=== PATIENT | male | born 1965 | race Caucasian/White ===

== ENCOUNTER 2022-02-03 20:53 | Emergency (ER) | payer BC ==
[2022-02-03 21:07] VITALS: TEMP 98.4
[2022-02-03] MEDS ORDERED: SODIUM CHLORIDE 0.9% 500 ML 500 ML IV STA (21:48)
--- NOTE | 2022-02-03 21:54 | ED ---
Neuro HPI - General Chief Complaint: Neuro Symptoms/Deficit Stated Complaint: Facial/L arm numbness Time Seen by Provider: 02/03/22 21:29 Source: patient Mode of arrival: wheelchair Limitations: no limitations - History of Present Illness Is the patient presenting with stroke symptoms?: Yes Last Known Well Date: 02/03/22 Last Known Well Time: 16:30 -: hour(s) Initial Comments: Patient is a 56-year-old man who presents to be evaluated for numbness he states mainly to his left thumb will also a little bit to the left hand and then mild numbness to his left face. This started at 4:30 PM while he was about 2 watch a dramatic production that his daughter was in. Patient denies any associated symptoms. He was not having headache, vision or speech changes. No neck, chest or back pain. He is not having any fever or chills, dyspnea, nausea or vomi ting. No change in bowel movements or urination. Location: left face, left arm History of same: No Place: school Severity: mild Quality: numb Improves With: none Worsens With: none Context: sudden onset Associated Symptoms: denies other symptoms Treatments Prior to Arrival: none - Related Data Home Medications: Previous Rx's Medication Instructions Recorded Hydrochlorothiazide 12.5 mg PO DAILY #14 capsule 02/04/22 [hydroCHLOROthiazide] Allergies/Adverse Reactions: Allergies Allergy/AdvReac Type Severity Reaction Status Date / Time No Known Allergies Allergy Verified 02/03/22 21:07 Review of Systems ROS Statement: Those systems with pertinent positive or pertinent negative responses have been documented in the HPI. ROS Other: All systems not noted in ROS Statement are negative. Constitutional: Denies: fever, chills, weakness Eyes: Denies: vision change Respiratory: Denies: cough, dyspnea Cardiovascular: Denies: chest pain, palpitations, edema, syncope Gastrointestinal: Denies: abdominal pain, vomiting, diarrhea Genitourinary: Denies: dysuria, hematuria Musculoskeletal: Denies: back pain Skin: Denies: rash Neurological: Reports: as per HPI, numbness. Denies: headache, weakness Psychiatric: Denies: anxiety General Exam Limitations: no limitations General appearance: alert, in no apparent distress Head exam: Present: atraumatic, normocephalic Eye exam: Present: normal appearance. Absent: scleral icterus, conjunctival injection ENT exam: Present: normal oropharynx Neck exam: Present: normal inspection Respiratory exam: Present: normal lung sounds bilaterally. Absent: respiratory distress, wheezes, rales, rhonchi, stridor Cardiovascular Exam: Present: regular rate, normal rhythm, normal heart sounds. Absent: systolic murmur, diastolic murmur, rubs, gallop GI/Abdominal exam: Present: soft. Absent: distended, tenderness, guarding, rebound, rigid, mass Extremities exam: Present: normal inspection, normal capillary refill. Absent: pedal edema, calf tenderness Back exam: Present: normal inspection. Absent: CVA tenderness (R), CVA tenderness (L) Neurological exam: Present: alert, oriented X3, CN II-XII intact. Absent: motor sensory deficit Skin exam: Present: warm, dry, intact, normal color. Absent: rash Stroke MDM - Lab Data Result diagrams: 02/03/22 22:21 02/03/22 22:21 Lab Results 02/03/22 02/03/22 02/03/22 Range/Units 22:21 22:21 22:21 WBC 9.5 (3.8-10.6) k/uL RBC 5.79 (4.30-5.90) m/uL Hgb 17.2 (13.0-17.5) gm/dL Hct 48.9 (39.0-53.0) % MCV 84.4 (80.0-100.0) fL MCH 29.6 (25.0-35.0) pg MCHC 35.1 (31.0-37.0) g/dL RDW 13.9 (11.5-15.5) % Plt Count 274 (150-450) k/uL MPV 7.3 Neutrophils % 71 % Lymphocytes % 21 % Monocytes % 5 % Eosinophils % 1 % Basophils % 1 % Neutrophils # 6.8 (1.3-7.7) k/uL Lymphocytes # 2.0 (1.0-4.8) k/uL Monocytes # 0.4 (0-1.0) k/uL Eosinophils # 0.1 (0-0.7) k/uL Basophils # 0.1 (0-0.2) k/uL PT 10.4 (9.0-12.0) sec INR 0.9 (<1.2) APTT 25.1 (22.0-30.0) sec Sodium (137-145) mmol/L Potassium (3.5-5.1) mmol/L Chloride (98-107) mmol/L Carbon Dioxide (22-30) mmol/L Anion Gap mmol/L BUN (9-20) mg/dL Creatinine (0.66-1.25) mg/dL Est GFR (CKD-EPI)AfAm (>60 ml/min/1.73 sqM) Est GFR (CKD-EPI)NonAf (>60 ml/min/1.73 sqM) Glucose (74-99) mg/dL Calcium (8.4-10.2) mg/dL Total Bilirubin (0.2-1.3) mg/dL AST (17-59) U/L ALT (4-49) U/L Alkaline Phosphatase (38-126) U/L Troponin I (0.000-0.034) ng/mL Total Protein (6.3-8.2) g/dL Albumin (3.5-5.0) g/dL Urine Color Light Yellow Urine Appearance Clear (Clear) Urine pH 7.5 (5.0-8.0) Ur Specific [place] 1.013 (1.001-1.035) Urine Protein Trace H (Negative) Urine Glucose (UA) Negative (Negative) Urine Ketones Negative (Negative) Urine Blood Negative (Negative) Urine Nitrite Negative (Negative) Urine Bilirubin Negative (Negative) Urine Urobilinogen <2.0 (<2.0) mg/dL Ur Leukocyte Esterase Negative (Negative) 02/03/22 02/03/22 Range/Units 22:21 22:21 WBC (3.8-10.6) k/uL RBC (4.30-5.90) m/uL Hgb (13.0-17.5) gm/dL Hct (39.0-53.0) % MCV (80.0-100.0) fL MCH (25.0-35.0) pg MCHC (31.0-37.0) g/dL RDW (11.5-15.5) % Plt Count (150-450) k/uL MPV Neutrophils % % Lymphocytes % % Monocytes % % Eosinophils % % Basophils % % Neutrophils # (1.3-7.7) k/uL Lymphocytes # (1.0-4.8) k/uL Monocytes # (0-1.0) k/uL Eosinophils # (0-0.7) k/uL Basophils # (0-0.2) k/uL PT (9.0-12.0) sec INR (<1.2) APTT (22.0-30.0) sec Sodium 138 (137-145) mmol/L Potassium 3.8 (3.5-5.1) mmol/L Chloride 105 (98-107) mmol/L Carbon Dioxide 23 (22-30) mmol/L Anion Gap 10 mmol/L BUN 16 (9-20) mg/dL Creatinine 0.95 (0.66-1.25) mg/dL Est GFR (CKD-EPI)AfAm >90 (>60 ml/min/1.73 sqM) Est GFR (CKD-EPI)NonAf 88 (>60 ml/min/1.73 sqM) Glucose 111 H (74-99) mg/dL Calcium 9.3 (8.4-10.2) mg/dL Total Bilirubin 0.7 (0.2-1.3) mg/dL AST 26 (17-59) U/L ALT 36 (4-49) U/L Alkaline Phosphatase 111 (38-126) U/L Troponin I <0.012 (0.000-0.034) ng/mL Total Protein 8.4 H (6.3-8.2) g/dL Albumin 4.8 (3.5-5.0) g/dL Urine Color Urine Appearance (Clear) Urine pH (5.0-8.0) Ur Specific [place] (1.001-1.035) Urine Protein (Negative) Urine Glucose (UA) (Negative) Urine Ketones (Negative) Urine Blood (Negative) Urine Nitrite (Negative) Urine Bilirubin (Negative) Urine Urobilinogen (<2.0) mg/dL Ur Leukocyte Esterase (Negative) - EKG Data -: EKG Interpreted by Co EKG shows normal: sinus rhythm, axis (Normal), intervals (Normal) Rate: tachycardia (Rate 102 BPM) Interpretation: other (Possible old inferior infarct based on Q waves in leads 3 and aVF) Past Medical History Past Medical History: No Reported History History of Any Multi-Drug Resistant Organisms: None Reported Past Surgical History: No Surgical Hx Reported Past Psychological History: Anxiety, Panic Disorder Smoking Status: Never smoker Past Alcohol Use History: None Reported Past Drug Use History: None Reported Course Vital Signs 02/03/22 02/03/22 02/03/22 21:03 21:57 22:00 Temperature 98.4 F Pulse Rate 112 H 96 32 L Respiratory 20 18 Rate Blood Pressure 244/156 237/157 233/185 O2 Sat by Pulse 97 97 Oximetry 02/03/22 22:18 Temperature Pulse Rate 61 Respiratory 16 Rate Blood Pressure 133/104 O2 Sat by Pulse 96 Oximetry Disposition Clinical Impression: Hypertension, Cerebrovascular accident (CVA) Disposition: HOME SELF-CARE Condition: Good Instructions (If sedation given, give patient instructions): Hypertension (ED) Prescriptions: Hydrochlorothiazide [hydroCHLOROthiazide] 12.5 mg PO DAILY #14 capsule Is patient prescribed a controlled substance at d/c from ED?: No Referrals: Lela Adkins MD [Primary Care Provider] - 1-2 days Iliana Blood MD [STAFF PHYSICIAN] - 1-2 days
[2022-02-03 22:33] LABS: Basophils # (A) 0.1 k/uL (0-0.2); Basophils % (A) 1 %; Eosinophils # (A) 0.1 k/uL (0-0.7); Eosinophils % (A) 1 %; HCT 48.9 % (39.0-53.0); HGB 17.2 gm/dL (13.0-17.5); Lymphocytes % (A) 21 %; MCH 29.6 pg (25.0-35.0); MCHC 35.1 g/dL (31.0-37.0); MCV 84.4 fL (80.0-100.0); Mean Platelet Volume 7.3; Monocytes # (A) 0.4 k/uL (0-1.0); Monocytes % (A) 5 %; Neutrophils # (A) 6.8 k/uL (1.3-7.7); Neutrophils % (A) 71 %; Platelet Count 274 k/uL (150-450); RBC 5.79 m/uL (4.30-5.90); RDW 13.9 % (11.5-15.5); WBC 9.5 k/uL (3.8-10.6)
[2022-02-03 22:48] LABS: INR 0.9 (<1.2); Partial Thromboplastin Time 25.1 sec (22.0-30.0); Prothrombin Time 10.4 sec (9.0-12.0)
[2022-02-03 23:04] LABS: Appearance,Urine Clear (Clear); Bilirubin,Urine Negative (Negative); Blood,Urine Negative (Negative); Color,Urine Light Yellow; Glucose,Urine (UA) Negative (Negative); Ketones,Urine Negative (Negative); Leukocyte Esterase,Urine Negative (Negative); Nitrite,Urine Negative (Negative); PH, Urine 7.5 (5.0-8.0); Protein,Urine Trace (Negative); Specific Gravity,Urine 1.013 (1.001-1.035); Urobilinogen,Urine <2.0 mg/dL (<2.0)
[2022-02-03 23:05] LABS: ALT 36 U/L (4-49); AST 26 U/L (17-59); African American GFR (CKD) >90 (>60 ml/min/1.73 sqM); Albumin 4.8 g/dL (3.5-5.0); Alkaline Phosphatase 111 U/L (38-126); Anion Gap 10 mmol/L; Blood Urea Nitrogen 16 mg/dL (9-20); Calcium 9.3 mg/dL (8.4-10.2); Carbon Dioxide 23 mmol/L (22-30); Chloride 105 mmol/L (98-107); Glucose 111 mg/dL (74-99); Non-African American GFR(CKD) 88 (>60 ml/min/1.73 sqM); Potassium 3.8 mmol/L (3.5-5.1); Sodium 138 mmol/L (137-145); Total Bilirubin 0.7 mg/dL (0.2-1.3); Total Protein 8.4 g/dL (6.3-8.2)
--- NOTE | 2022-02-03 23:07 | CT ---
EXAMINATION TYPE: CT brain wo con for TPA DATE OF EXAM: 02/03/2022 COMPARISON: HISTORY: left side arm numbness CT DLP: 1099.4 mGycm Automated exposure control for dose reduction was used. Ventricles have normal size. There is some hypodensity in the white matter right anterior internal ca psule consistent with lacunar infarct. This measures 1.5 cm and poorly marginated. There is no midlin e shift. There is no sign of intracranial hemorrhage. The calvarium is intact. Skull base is intact. There is normal aeration of the mastoid sinuses. There is some mucosal thickening in the right-sided sphenoid sinus. There is 4 mm hypodensity in the medial left caudate nucleus. IMPRESSION: White matter hypodensity consistent with microvascular ischemia and lacunar infarct in the right ante rior internal capsule and left caudate nucleus. No hemorrhage.
--- NOTE | 2022-02-03 23:09 | XR ---
EXAMINATION TYPE: XR chest 1V portable DATE OF EXAM: 02/03/2022 COMPARISON: NONE HISTORY: Altered mental status TECHNIQUE: Single view FINDINGS: Heart is normal. Lungs are clear of infiltrate. There is no heart failure. There are no hil ar masses. There are chest leads. Costophrenic angles are clear. Bony thorax appears intact. IMPRESSION: No active cardiopulmonary disease.
[2022-02-04] MEDS ORDERED: LORazepam 2 MG/ML INJ IV STA (00:05)
[2022-02-04 01:10] VITALS: BP 227/135; PULSE 81; RESP 18
== END 2022-02-04 01:10 | disposition home or self-care (01) ==
LOC: EC 20:53
DX: I63.9 Cerebral infarction, unspecified (principal); I10 Essential (primary) hypertension
CPT/HCPCS: 36415; 70450; 71045; 80053; 81003; 84484; 85025; 85610; 85730; 93005; 99284

== ENCOUNTER → 2022-08-21 | Outpatient (CLI) | payer BC ==
--- NOTE | 2022-08-21 14:46 | MR ---
EXAMINATION TYPE: MR brain wo con DATE OF EXAM: 08/21/2022 COMPARISON: CT brain February 03, 2022 HISTORY: Weakness. Cerebrovascular disease. TECHNIQUE: Multiplanar, multisequence imaging of the brain and brainstem is performed without IV cont rast. FINDINGS: Diffusion weighted images demonstrate slight increased signal without diminished signal on ADC mappin g right aspect of the splenium of the corpus callosum image 160 series 703 favoring T2 shine through. No definitive restricted diffusion. Mild ventricular and sulcal prominence. Focal and confluent areas of T2 hyperintensity seen throughou t the white matter bilaterally greatest in the periventricular levels. Some involvement in the garret i s noted. Lesions nonspecific in appearance and distribution. Midline structures demonstrate normal morphology. The craniocervical junction appears within normal limits. Normal vascular flow voids are present. Focal mild to moderate mucosal thickening posterior r ight ethmoid and anterior right sphenoid sinus. Focal opacity anterior right sphenoid sinus axial pop ge 7. Mild mucosal thickening throughout the ethmoid sinuses bilaterally. Globes are intact bilateral ly. IMPRESSION: 1. No MRI evidence for a recent infarct. 2. Mild diffuse cerebral atrophy and fairly advanced nonspecific white matter changes. One must consi justyn demyelinating disease among the broad differential in patient with extremity numbness and weaknes s. Correlate clinically. 3. Acute on chronic right-sided posterior paranasal sinus disease redemonstrated.
--- NOTE | 2022-08-22 05:25 | MR ---
EXAMINATION TYPE: MR angio head/neck wo con DATE OF EXAM: 08/21/2022 COMPARISON: None HISTORY: Weakness, stroke MR angiographic images of the cervical carotid and vertebral arteries obtained without contrast. MR a ngiographic images of the brain obtained without contrast. FINDINGS: There is normal branching pattern of the great vessels on the aortic arch. There is arterial flow in both subclavian arteries. There is arterial flow in the common internal and external carotid arteries bilaterally. There is fairly wide patency of the carotid artery bifurcations. There is arterial flow in both vertebral arteries. Left vertebral artery is much larger than the right. The proximal right vertebral artery not well visualized. There is arterial flow in the vertebral basilar artery system. No evidence of carotid or vertebral artery aneurysm or dissection. There is arterial flow in the anterior middle and posterior cerebral arteries bilaterally. No mass ef fect. No evidence of intracranial arterial stenosis. No evidence of intracranial aneurysm. IMPRESSION: Negative MR angiogram of the neck. There is a diminutive right vertebral artery which is probably nor mal variation. Negative MR angiogram of the brain.
== END | disposition home or self-care (01) ==
LOC: RADMRIMAIN 13:19
PROVIDERS: ATTEND Psychiatry & Neurology Neurology
DX: I67.9 Cerebrovascular disease, unspecified (principal); I82.701 Chronic embolism and thrombosis of unspecified veins of right upper extremity; I67.1 Cerebral aneurysm, nonruptured
CPT/HCPCS: 70544; 70547; 70551